=== PATIENT | female | born 1995 | race Caucasian/White ===

== ENCOUNTER → 2025-05-12 | Outpatient (CLI) | payer OTHER ==
--- NOTE | 2025-05-12 15:50 | USB ---
Reason for Exam: Follow-up at short interval from prior study. Technique: Method: Targeted. Findings: The upper outer quadrant of the left breast, the axilla of the left breast and the retroareolar of the left breast were scanned. Targeted ultrasound upper outer quadrant 12:00 to 3:00 including scanning of the subareolar region and axilla. Redemonstrated elongated cyst at the 1:00 position, 10 cm from the nipple, currently measuring 2.3 x 1.6 x 1.3 cm. Previously measuring 1.9 x 1.6 x 1.1 cm. At thin internal septation is now noted. No additional internal complexity. Posterior through transmission is redemonstrated. Despite the interval enlargement, benign etiology remains favored. An additional 2 month follow-up is recommended to assess for any involution. If there is progressive increase in size or development of any suspicious internal complexity, aspiration/sampling could be performed at that time. Overall Assessment: Probably benign, BI-RAD 3 Management: Diagnostic Breast Ultrasound of the left breast in 2 months. A clinical breast exam by your physician is recommended on an annual basis and results should be correlated with mammographic findings. This exam should not preclude additional follow-up of suspicious palpable abnormalities. Results were given to the patient verbally at the time of exam. [facility], , 05/12/2025 3:46 PM. Electronically signed and approved by: Ghazal Barrios M.D. Radiologist
== END | disposition home or self-care (01) ==
LOC: RADUSWWP 14:50
PROVIDERS: ATTEND Family Medicine
DX: N64.4 Mastodynia (principal)